=== PATIENT | female | born 1940 | race Caucasian/White ===

== ENCOUNTER 2018-03-24 19:10 | Emergency (ER) | payer OTHER ==
[2018-03-24 19:24] VITALS: TEMP 96.6
--- NOTE | 2018-03-24 20:13 | CT ---
EXAM: CT BRAIN HISTORY: Change in mental status TECHNIQUE: CT brain without intravenous contrast. 5-mm axial sections with Reformations. COMPARISON: None FINDINGS: There is generalized atrophy. There is moderate periventricular and deep white matter low attenuatio n which although nonspecific is suggestive of chronic microvascular ischemic change. Heavy vascular calcifications consistent with atherosclerosis. Brain otherwise is unremarkable without evidence of hemorrhage or large vessel distribution recent is chemic infarction. There is no suggestion of acute hydrocephalus or subdural fluid collection. No m ass or mass effect. Cranium has no acute finding. Mastoid processes are aerated. The visualized paranasal sinuses are clear. IMPRESSION: Involutional changes. No acute intracranial process.
[2018-03-24 21:03] VITALS: BP 172/67
[2018-03-24 23:42] VITALS: BMI 23.9
--- NOTE | 2018-03-25 05:26 | ED.PDOC ---
General Stated Complaint: sent by ems for eval--this is a reconstructed chart without the original data Time Seen by Physician: 05:24 Mode of Arrival: Ambulance Information Source: EMT Exam Limitations: Dementia Nursing and Triage Documentation Reviewed and Agree: Yes Does patient meet sepsis criteria?: No System Inflammatory Response Syndrome: Not Applicable <JENNIFFERCHARLES Last Filed: 03/25/18 06:06> <REHANA ALLEN - Last Filed: 03/25/18 09:42> ED Provider: Dr. REHANA ALLEN Chief Complaint: Non-specific Complaint Sepsis Protocol: For patient's 13 years and over: Temp is 96.8 and below OR 101 and greater Pulse >90 BPM Resp >20/minute Acutely Altered Mental Status Are patient's symptoms suggestive of a new infection, such as: -Pneumonia -Skin, Soft Tissue -Endocarditis -UTI -Bone, Joint Infection -Implantable Device -Acute Abdominal Infection -Wound Infection -Meningitis -Blood Stream Catheter Infection -Unknown Neurological Complaint Exam - Neurological Deficit Complaint/Exam Patient Complains of: Denies: Muscle weakness, Abnormal sensation, Other Location: Denies: Generalized, Facial, RUE, LUE, RLE, LLE Character: Denies: Numbness, Tingling, Paresthesia, Motor weakness, Paralysis, Sensory loss, Impaired speech Aggravating: Denies: None, Fatigue, Stress, Hypertension, Exertion Alleviating: Denies: None, Rest, OTC Meds, Heat, Ice Associated Signs and Symptoms: Reports: Confusion Gait: Normal Nystagmus Present: No Gag Reflex Present: Yes [id number]: Normal Findings Heel to Toe Normal: No Signs of Trauma: No IV t-PA Prescribed: No <JENNIFFERCHARLES Last Filed: 03/25/18 06:06> Review of Systems - Review Of Systems Constitutional: Reports: No symptoms Eyes: Reports: No symptoms Ears, Nose, Mouth, Throat: Reports: No symptoms Respiratory: Reports: No symptoms Cardiac: Reports: No symptoms GI: Reports: No symptoms : Reports: No symptoms Musculoskeletal: Reports: No symptoms Skin: Reports: No symptoms Neurological: Reports: No symptoms Endocrine: Reports: No symptoms Hematologic/Lymphatic: Reports: No symptoms All Other Systems: Reviewed and Negative <JENNIFFERCHARLES Last Filed: 03/25/18 06:06> Past Medical History - Past Medical History Endocrine: Reports: Unknown Cardiovascular: Reports: Unknown Respiratory: Reports: Unknown Hematological: Reports: Unknown Gastrointestinal: Reports: Unknown Genitourinary: Reports: Unknown Neuro/Psych: Reports: Unknown Musculoskeletal: Reports: Unknown Cancer: Reports: Unknown - Surgical History General Surgical History: Reports: Unknown - Family History Family History: Reports: Unknown <CHARLES ABAD - Last Filed: 03/25/18 06:06> Physical Exam - Physical Exam Appearance: Well-appearing, No pain distress, Well-nourished Eyes: LUIS, EOMI, Conjunctiva clear ENT: Ears normal Neck: Supple Respiratory: Airway patent, Breath sounds clear, Breath sounds equal, Respirations nonlabored Cardiovascular: RRR, Pulses normal, No rub, No murmur GI/: Soft Musculoskeletal: Normal strength, ROM intact, No edema, No calf tenderness Skin: Warm, Dry, Normal color Neurological: Sensation intact, Motor intact, Reflexes intact, Cranial nerves intact, Alert, Oriented Psychiatric: Affect appropriate <CHARLES ABAD - Last Filed: 03/25/18 06:06> - NIH Stroke Scale 1a. Level of Consciousness: 0=Alert and keenly responsive 1b. Level of Consciousness Questions: 0=Answers correctly to two questions 1c. Level of Consciousness Commands: 0=Performs two tasks correctly 2. Best Gaze: 0=Normal 3. Visual: 0=No visual loss 4. Facial Palsy: 0=Normal 5a. Motor Left Arm: 0=No drift,arm holds 90 degrees for 10 sec., leg 30 degrees for 5 sec. 5b. Motor Right Arm: 0=No drift,arm holds 90 degrees for 10 sec., leg 30 degrees for 5 sec. 6a. Motor Left Le=No drift,arm holds 90 degrees for 10 sec., leg 30 degrees for 5 sec. 6b. Motor Right Le=No drift,arm holds 90 degrees for 10 sec., leg 30 degrees for 5 sec. 7. Limb Ataxia: 0=Absent 10. Dysarthria: 0=Normal 11. Extincion and Inattention: 0=Normal Stroke Scale Total: 0 <REHANA ALLEN - Last Filed: 03/25/18 09:42> Re-Evaluation - Re-Evaluation Time of Re-Evaluation: 07:00 Status: Unchanged Vital Signs Stable: Yes Pain Level: 0 Appearance: NAD Lungs: Clear Skin: Warm and Dry Neuro: Alert and Oriented X3 (but at times confused to time and location and persons) CV: RRR <REHANA ALLEN - Last Filed: 03/25/18 09:42> Physician Notification - Case Discussed Physician Notified: dr allen Time of Notification: 07:00 <CHARLES ABAD - Last Filed: 03/25/18 06:06> - Case Discussed Physician Notified: mtz Time of Notification: 09:41 (transfer now) <REHANA ALLEN - Last Filed: 03/25/18 09:42> Critical Care Note - Critical Care Note Total Time (mins): 0 <JENNIFFERCHARLES - Last Filed: 03/25/18 06:06> Course - Course Hematology/Chemistry: 03/24/18 19:34 03/24/18 19:34 <NELLYREHANA - Last Filed: 03/25/18 09:42> - Course Orders, Labs, Meds: Lab Review 03/24/18 03/24/18 03/24/18 19:34 19:34 19:34 WBC 5.08 RBC 4.07 L Hgb 11.9 L Hct 34.9 L MCV 85.7 MCH 29.2 MCHC 34.1 RDW Coeff of Ivan 12.8 Plt Count 154 Immature Gran % (Auto) 0.2 Neut % (Auto) 73.3 Lymph % (Auto) 15.4 [place] % (Auto) 8.9 Eos % (Auto) 1.6 Baso % (Auto) 0.6 Immature Gran # (Auto) 0.0 Neut # (Auto) 3.7 Lymph # (Auto) 0.8 [place] # (Auto) 0.5 Eos # (Auto) 0.1 Baso # (Auto) 0.0 Sodium 134.7 Potassium 3.65 Chloride 98.0 Carbon Dioxide 28.1 Anion Gap 12.25 BUN 28.1 H Creatinine 1.54 H Estimated GFR (MDRD) 33.00 BUN/Creatinine Ratio 18.24 Glucose 81.5 Calcium 10.51 H Total Bilirubin 1.08 AST 21.7 ALT 14.5 Alkaline Phosphatase 54.9 Total Protein 6.50 Albumin 4.05 Globulin 2.45 Albumin/Globulin Ratio 1.65 Vitamin B12 TSH 2.530 Urine Color Urine Clarity Urine pH Ur Specific [place] Urine Protein Urine Glucose (UA) Urine Ketones Urine Blood Urine Nitrite Urine Bilirubin Urine Urobilinogen Ur Leukocyte Esterase 03/24/18 03/24/18 19:34 22:33 WBC RBC Hgb Hct MCV MCH MCHC RDW Coeff of [place] Plt Count Immature Gran % (Auto) Neut % (Auto) Lymph % (Auto) [place] % (Auto) Eos % (Auto) Baso % (Auto) Immature Gran # (Auto) Neut # (Auto) Lymph # (Auto) [place] # (Auto) Eos # (Auto) Baso # (Auto) Sodium Potassium Chloride Carbon Dioxide Anion Gap BUN Creatinine Estimated GFR (MDRD) BUN/Creatinine Ratio Glucose Calcium Total Bilirubin AST ALT Alkaline Phosphatase Total Protein Albumin Globulin Albumin/Globulin Ratio Vitamin B12 > 1000 H TSH Urine Color Yellow Urine Clarity Clear Urine pH 5.5 Ur Specific [place] <=1.005 Urine Protein Negative Urine Glucose (UA) Negative Urine Ketones Trace Urine Blood Negative Urine Nitrite Negative Urine Bilirubin Negative Urine Urobilinogen 0.2 Ur Leukocyte Esterase Negative Orders Category Date Time Status ED IV/MEDIPORT/POWERPORT .ONCE EMERGENCY 03/25/18 07:44 Active Mental Health Consult [ED MENTAL HEALTH CONSULT] .ONCE EMERGENCY 03/25/18 06: 01 Active CBC W/ AUTO DIFF Stat LAB 03/24/18 19:34 Completed COMPREHENSIVE METABOLIC PANEL Stat LAB 03/24/18 19:34 Completed RAPID PLASMA REAGIN Stat LAB 03/24/18 19:34 Received THYROID STIMULATING HORMONE Stat LAB 03/24/18 19:34 Completed UA [URINALYSIS C & S IF INDICATED] Stat LAB 03/24/18 22:33 Completed VITAMIN B12 Stat LAB 03/24/18 19:34 Completed 0.9 % Sodium Chloride [Saline Flush] MEDS 03/25/18 07:44 Active 1 syr IVF PRN PRN Methylprednisolone Sod Succ/Pf [Solu-Medrol 125 mg] MEDS 03/25/18 07:45 Discontinued 125 mg IVP ONCE STA Sodium Chloride 0.9% [Sodium Chloride] 1,000 ml MEDS 03/25/18 07:[address] CHEST W/O CONTRAST Stat RADS 03/25/18 08:53 Completed Medications Generic Name Dose Route Start Last Admin Trade Name Freq PRN Reason Stop Dose Admin Sodium Chloride 1 syr 03/25/18 07:44 Saline Flush IVF PRN PRN To flush IV Discontinued Medications Generic Name Dose Route Start Last Admin Trade Name Freq PRN Reason Stop Dose Admin Sodium Chloride 1,000 mls @ 1,000 mls/hr 03/25/18 07:44 03/25/18 08:30 Sodium Chloride IV 03/25/18 08:43 1,000 mls/hr BOLUS STA Administration Methylprednisolone Sodium Succinate 125 mg 03/25/18 07:45 03/25/18 08:47 Solu-Medrol 125 Mg IVP 03/25/18 07:46 125 mg ONCE STA Administration Vital Signs: Temp Pulse Resp BP Pulse Ox 03/24/18 21:03 172/67 H 03/24/18 19:13 96.6 F L 77 20 168/81 H 100 Departure <CHARLES ABAD - Last Filed: 03/25/18 06:06> - Departure Time of Disposition: 09:42 Pt referred to PMD for follow-up: Yes IPMP verified?: No <REHANA ALLEN - Last Filed: 03/25/18 09:42> - Departure Disposition: [facility]SF SHORT-TRM HOSP Discharge Problem: Hypercalcemia Altered mental state Qualifiers: Altered mental status type: disorientation Qualified Code(s): R41.0 - Disorientation, unspecified Instructions: Hypercalcemia (ED) Condition: Good Allergies/Adverse Reactions: Allergies No Known Allergies Allergy (Verified 03/24/18 19:24) Home Medications: Ambulatory Orders Carvedilol [Coreg] 6.25 mg PO BIDWM 03/24/18 Cephalexin [Keflex] 500 mg PO Q12HR 03/24/18 Ergocalciferol (Vitamin D2) [Vitamin D2] 50,000 unit PO DIRECTED 03/24/18 Furosemide [Lasix Tab] 20 mg PO QDAC PRN 03/24/18 Lansoprazole [Prevacid] 30 mg PO DAILY PRN 03/24/18 Latanoprost [Xalatan] 1 drop OP BEDTIME 03/24/18 Losartan Potassium [Cozaar] 50 mg PO BID 03/24/18 Simvastatin [Zocor] 40 mg PO BEDTIME 03/24/18 Sitagliptin Phosphate [Januvia] 50 mg PO DAILY 03/24/18
[2018-03-25] MEDS ORDERED: SODIUM CHLORIDE 1,000 ML IV STA (07:44)
[2018-03-25] MEDS ORDERED: SOLU-MEDROL 125 MG IVP STA (07:45)
--- NOTE | 2018-03-25 09:35 | CT ---
EXAM: CT of the chest without contrast History: Cough, hypercalcemia Technique: Multiplanar CT images through the chest were obtained without the administration of IV co ntrast Findings: Heart is borderline enlarged. Trace anterior pericardial fluid. Coronary calcifications and valvular calcifications of the heart, including the aortic valve and mitral valve. No thoracic a ortic aneurysm. No pathologically enlarged thoracic lymph nodes. Calcified granulomas seen within t he thorax. No consolidation. No pleural fluid and no pneumothorax. No suspicious lung masses or bhavani ng nodules. Within the visualized upper abdomen, cholelithiasis. Atrophic left kidney. No acute osseous abnorma lities. Chronic compression deformity at T7. Impression: 1. No acute intrathoracic process. 2. No lymphadenopathy. 3. Coronary artery disease and valvular calcifications of the heart. 4. Cholelithiasis. 5. Atrophic left kidney. 6. Old granulomatous disease
== END 2018-03-25 10:03 | disposition short-term general hospital (02) ==
LOC: ED 23:41
DX: R41.0 Disorientation, unspecified (principal); E83.52 Hypercalcemia; F03.90 Unspecified dementia, unspecified severity, without behavioral disturbance, psychotic disturbance, mood disturbance, and anxiety; Z79.899 Other long term (current) drug therapy; R88.8 Abnormal findings in other body fluids and substances; W19.XXXA Unspecified fall, initial encounter
CPT/HCPCS: 36415; 80053; 81001; 82607; 84443; 85025; 86592; 96361; 96374; 99285

== ENCOUNTER 2018-08-14 11:30 | Outpatient (CLI) | END 2018-08-14 11:31 | disposition home or self-care (01) | LOC: NONPT 11:30 | PROVIDERS: ATTEND Internal Medicine | DX: E87.1 Hypo-osmolality and hyponatremia (principal); N18.9 Chronic kidney disease, unspecified | CPT/HCPCS: 80053; 85025 ==